=== PATIENT | female | born 1955 | race Caucasian/White ===

== ENCOUNTER 2016-09-05 12:55 | Inpatient (IN) | payer OTHER ==
[~2016-09-05] VITALS: Ht 167.6 cm; Wt 63.9 kg
[2016-09-05] MEDS ORDERED: BREO ELLIPTA I1 EACH IH (13:29)
[2016-09-05] MEDS ORDERED: INCRUSE ELLI62.5 MCG IH (13:29)
[2016-09-05 13:42] LABS: HEMATOCRIT 46.8 % (36.0-46.0); MCH 29.2 PG (29.0-34.0); MCHC 31.6 G/DL (30.0-36.0); MCV 92.5 FL (83-99); MEAN PLAT.VOLUME 9.8 uM^3 (9.5-12.4); PLATELET COUNT 130 K/uL (156-360); RBC DIS.WIDTH-CV 12.3 % (11.8-14.6); RBC DIS.WIDTH-SD 40.5 % (39-53); RED BLOOD COUNT 5.06 M/uL (3.80-5.20); WHITE BLOOD COUNT 2.9 K/uL (4.1-10.2)
[2016-09-05 13:54] LABS: CHLORIDE 97 mEq/L (99-109); POTASSIUM 3.9 mEq/L (3.7-5.4); SODIUM 145 mEq/L (136-147)
[2016-09-05 13:56] LABS: GLUCOSE 143 mg/dL (70-99)
[2016-09-05 13:57] LABS: ANION GAP 14 MEQ/L (2-14)
[2016-09-05 13:59] LABS: GFR ESTIMATE (CALCULATED) > 59 mL/min/
[2016-09-05 14:00] LABS: UREA NITROGEN (BUN) 16 mg/dL (9-23)
[2016-09-05 14:03] LABS: D-DIMER ELISA 0.16 mg/L FEU (< 0.57)
[2016-09-05 14:07] LABS: TROP-I INTERPRETATION NEGATIVE; TROPONIN-I < 0.01 ng/mL (0.0-0.30)
[2016-09-05 15:18] LABS: VENOUS PCO2 100 mm Hg (41-51)
[2016-09-05 15:19] LABS: CARBON DIOXIDE (BICARBONATE) > 40.0 MEQ/L (20-31)
[2016-09-05 17:51] LABS: BASE EXCESS 6.5 mEq/L (-3 to +3); BICARBONATE 35.9 mEq/L (22-26); CARBOXY HGB 1.2 % (0-5); COMMENTS - BLOOD GASES A+C+; DEVICE 840; FI02 40 %; METHEMOGLOBIN 1.2 % (0-1.5); MODE PS; PCO2 73 mm Hg (35-45); PEEP 5 CM/H20; PO2 98 mm Hg (80-100); PRES. SUPPORT 15 CM/H2O; SITE LRA; TOTAL RESP RATE 20 resp/min
[2016-09-05 20:34] VITALS: BP 132/81
[2016-09-05 20:53] VITALS: BP 132/81
[2016-09-05 21:00] VITALS: BP 123/92
[2016-09-05 22:00] VITALS: BP 119/83
[2016-09-05 22:28] LABS: METH RESISTANT S AUREUS PCR NEGATIVE (NEGATIVE)
[2016-09-05 22:30] LABS: PROBE CHECK PASS; SPECIMEN PROCESSING CONTROL PASS
[2016-09-05 23:00] VITALS: BP 124/81
[2016-09-06] VITALS (21 sets, daily range): BP systolic 105–145; BP diastolic 60–88
[2016-09-06 08:42] LABS: EOSINOPHIL (%) 0.4 % (0-5); HEMATOCRIT 44.2 % (36.0-46.0); MCH 28.9 PG (29.0-34.0); MCHC 30.8 G/DL (30.0-36.0); MCV 93.8 FL (83-99); MEAN PLAT.VOLUME 10.3 uM^3 (9.5-12.4); MONOCYTE (%) 16.1 % (3-12); MONOCYTE COUNT 0.9 K/uL (0-0.8); NEUTROPHIL (%) 64.5 % (45-76); NEUTROPHIL COUNT 3.5 K/uL (1.8-6.4); PLATELET COUNT 150 K/uL (156-360); RBC DIS.WIDTH-CV 12.4 % (11.8-14.6); RBC DIS.WIDTH-SD 42.7 % (39-53); RED BLOOD COUNT 4.71 M/uL (3.80-5.20)
[2016-09-06 08:43] LABS: WHITE BLOOD COUNT 5.4 K/uL (4.1-10.2)
[2016-09-06 09:01] LABS: ANION GAP 6 MEQ/L (2-14); CHLORIDE 97 MEQ/L (99-109); GFR ESTIMATE (CALCULATED) > 59 mL/min/; MAGNESIUM 2.3 mg/dl (1.3-2.7); POTASSIUM 4.3 MEQ/L (3.7-5.4); SAMPLE HEMOLYSIS CHECK 0; SAMPLE ICTERIC CHECK 0; SAMPLE LIPEMIA CHECK 0; SODIUM 143 MEQ/L (136-147); UREA NITROGEN (BUN) 18 mg/dL (9-23)
[2016-09-06 09:02] LABS: GLUCOSE 91 mg/dL (70-99)
[2016-09-07 05:07] VITALS: BP 154/84
[2016-09-07 06:47] LABS: EOSINOPHIL (%) 0 % (0-5); HEMATOCRIT 42.8 % (36.0-46.0); IMMATURE GRANULOCYTE (%) 0.2 % (0.0-0.7); LYMPHOCYTE COUNT 0.9 K/uL (1.0-2.8); MCH 29.4 PG (29.0-34.0); MCHC 30.6 G/DL (30.0-36.0); MEAN PLAT.VOLUME 10.6 uM^3 (9.5-12.4); MONOCYTE (%) 6.7 % (3-12); MONOCYTE COUNT 0.4 K/uL (0-0.8); NEUTROPHIL (%) 76.6 % (45-76); NEUTROPHIL COUNT 4.1 K/uL (1.8-6.4); PLATELET COUNT 157 K/uL (156-360); RBC DIS.WIDTH-CV 12.4 % (11.8-14.6); RBC DIS.WIDTH-SD 43.3 % (39-53); RED BLOOD COUNT 4.46 M/uL (3.80-5.20); WHITE BLOOD COUNT 5.3 K/uL (4.1-10.2)
[2016-09-07 07:13] LABS: ANION GAP 4 MEQ/L (2-14); CHLORIDE 100 MEQ/L (99-109); GFR ESTIMATE (CALCULATED) > 59 mL/min/; GLUCOSE 99 mg/dL (70-99); POTASSIUM 4.6 MEQ/L (3.7-5.4); SAMPLE HEMOLYSIS CHECK 0; SAMPLE ICTERIC CHECK 0; SAMPLE LIPEMIA CHECK 0; SODIUM 142 MEQ/L (136-147); UREA NITROGEN (BUN) 21 mg/dL (9-23)
[2016-09-07 07:17] LABS: INTERNAL CONTROL VALID? YES
[2016-09-07 08:02] VITALS: BP 143/85
[2016-09-07 16:57] VITALS: BP 138/72
[2016-09-07 23:52] VITALS: BP 151/72
[2016-09-08 04:55] VITALS: BP 118/67
[2016-09-08 06:42] LABS: EOSINOPHIL (%) 0 % (0-5); HEMATOCRIT 42.3 % (36.0-46.0); IMMATURE GRANULOCYTE (%) 0.2 % (0.0-0.7); LYMPHOCYTE COUNT 0.8 K/uL (1.0-2.8); MCH 28.7 PG (29.0-34.0); MCV 95.7 FL (83-99); MEAN PLAT.VOLUME 10.5 uM^3 (9.5-12.4); MONOCYTE (%) 9.8 % (3-12); MONOCYTE COUNT 0.5 K/uL (0-0.8); NEUTROPHIL (%) 73.8 % (45-76); NEUTROPHIL COUNT 3.6 K/uL (1.8-6.4); PLATELET COUNT 155 K/uL (156-360); RBC DIS.WIDTH-CV 12.3 % (11.8-14.6); RBC DIS.WIDTH-SD 43.2 % (39-53); RED BLOOD COUNT 4.42 M/uL (3.80-5.20); WHITE BLOOD COUNT 4.9 K/uL (4.1-10.2)
[2016-09-08 07:07] LABS: ANION GAP 6 MEQ/L (2-14); CHLORIDE 101 MEQ/L (99-109); MAGNESIUM 1.9 mg/dl (1.3-2.7); POTASSIUM 4.2 MEQ/L (3.7-5.4); SAMPLE HEMOLYSIS CHECK 0; SAMPLE ICTERIC CHECK 0; SAMPLE LIPEMIA CHECK 0; SODIUM 144 MEQ/L (136-147)
[2016-09-08 07:12] LABS: GFR ESTIMATE (CALCULATED) > 59 mL/min/; GLUCOSE 99 mg/dL (70-99); UREA NITROGEN (BUN) 19 mg/dL (9-23)
[2016-09-08 10:07] VITALS: BP 135/83
[2016-09-08 11:59] VITALS: BP 171/88
[2016-09-08] MEDS ORDERED: LEVAQUIN750 MG PO (15:25)
[2016-09-08] MEDS ORDERED: PREDNISONE10 M1 PO (15:25)
[2016-09-08] MEDS ORDERED: ALPRAZOLAM0.25 M2 PO (15:25)
[2016-09-08] MEDS ORDERED: VENTOLIN HFA18 GM IH (15:25)
[2016-09-08 15:37] VITALS: BP 140/92
[2016-09-08 19:30] VITALS: BP 146/88
== END 2016-09-08 20:46 | disposition home health service (06) | DRG 208 ==
LOC: EME 12:55 → EDOF 18:02 → 4WEST 18:02 → 4EAST 18:02 → 4WEST 20:33 → 4EAST 09-06 22:04 → 4SOUTH 09-08 09:55
PROVIDERS: Emergency Medicine; Internal Medicine Nephrology
PROC: 5A1945Z Respiratory Ventilation, 24-96 Consecutive Hours (ICD-10-PCS; principal; 2016-09-05)
PROC: 0BH17EZ Insertion of Endotracheal Airway into Trachea, Via Natural or Artificial Opening (ICD-10-PCS; 2016-09-05)
DX: J96.21 Acute and chronic respiratory failure with hypoxia (principal); J44.1 Chronic obstructive pulmonary disease with (acute) exacerbation; E87.2 Acidosis; J96.22 Acute and chronic respiratory failure with hypercapnia; J20.9 Acute bronchitis, unspecified; F41.9 Anxiety disorder, unspecified; I10 Essential (primary) hypertension; Z99.81 Dependence on supplemental oxygen; Z87.891 Personal history of nicotine dependence; Z88.5 Allergy status to narcotic agent
CPT/HCPCS: 36600; 71020; 80048; 82803; 83735; 84100; 84484; 85025; 85027; 85379; 87449; 87641; 93005; 94002; 94640; 94640 76; 94644; 94799; 99202; 99281; 99285; J1100; J1644; J1956; J2060; J2920; J3475; J7644; S0028

== ENCOUNTER 2017-02-12 14:19 | Inpatient (IN) | payer OTHER ==
[~2017-02-12] VITALS: Ht 167.6 cm; Wt 74.8 kg
[~2017-02-12 14:19] MED LIST: ALPRAZOLAM0.25 M2 PO; BREO ELLIPTA I1 EACH IH; INCRUSE ELLI62.5 MCG IH; LEVAQUIN750 MG PO; PREDNISONE10 M1 PO; VENTOLIN HFA18 GM IH
[2017-02-12 15:29] LABS: EOSINOPHIL (%) 0.2 % (0-5); IMMATURE GRANULOCYTE (%) 0.7 % (0.0-0.7); INSTRUMENT ABS NEUTROPHIL CT 2.9 K/uL; LYMPHOCYTE COUNT 0.8 K/uL (1.0-2.8); MCH 28.7 PG (29.0-34.0); MCHC 31.6 G/DL (30.0-36.0); MCV 90.9 FL (83-99); MEAN PLAT.VOLUME 9.3 uM^3 (9.5-12.4); MONOCYTE (%) 6.7 % (3-12); MONOCYTE COUNT 0.3 K/uL (0-0.8); NEUTROPHIL (%) 71.8 % (45-76); NEUTROPHIL COUNT 2.9 K/uL (1.8-6.4); PLATELET COUNT 170 K/uL (156-360); RBC DIS.WIDTH-CV 12.3 % (11.8-14.6); RBC DIS.WIDTH-SD 40.5 % (39-53); RED BLOOD COUNT 4.84 M/uL (3.80-5.20)
[2017-02-12 15:36] LABS: CHLORIDE 104 mEq/L (99-109); POTASSIUM 3.6 mEq/L (3.7-5.4); SODIUM 144 mEq/L (136-147)
[2017-02-12 15:38] LABS: GLUCOSE 114 mg/dL (70-99)
[2017-02-12 15:40] LABS: ANION GAP 8 MEQ/L (2-14); TOTAL BILIRUBIN 0.6 mg/dL (0.0-1.0)
[2017-02-12 15:42] LABS: ALKALINE PHOSPHATASE 43 IU/L (3-129); GFR ESTIMATE (CALCULATED) > 59 mL/min/
[2017-02-12 15:43] LABS: UREA NITROGEN (BUN) 11 mg/dL (9-23)
[2017-02-12 15:48] LABS: TROP-I INTERPRETATION NEGATIVE; TROPONIN-I < 0.01 ng/mL (0.0-0.30)
[2017-02-12 18:37] LABS: D-DIMER ELISA < 0.15 mg/L FEU (< 0.57)
[2017-02-12 20:30] VITALS: BP 144/83
[2017-02-12] MEDS ORDERED: ZOLOFT25 MG PO (20:55)
[2017-02-13] VITALS: BP 119/64
[2017-02-13 03:54] VITALS: BP 105/55
[2017-02-13 05:57] LABS: HEMATOCRIT 39.7 % (36.0-46.0); MCH 28.9 PG (29.0-34.0); MCHC 31.2 G/DL (30.0-36.0); MCV 92.5 FL (83-99); MEAN PLAT.VOLUME 9.8 uM^3 (9.5-12.4); PLATELET COUNT 192 K/uL (156-360); RBC DIS.WIDTH-CV 12.2 % (11.8-14.6); RBC DIS.WIDTH-SD 41.7 % (39-53); RED BLOOD COUNT 4.29 M/uL (3.80-5.20); WHITE BLOOD COUNT 6.4 K/uL (4.1-10.2)
[2017-02-13 06:22] LABS: ANION GAP 6 MEQ/L (2-14); CHLORIDE 104 MEQ/L (99-109); GFR ESTIMATE (CALCULATED) > 59 mL/min/; GLUCOSE 128 mg/dL (70-99); POTASSIUM 4.3 MEQ/L (3.7-5.4); SAMPLE HEMOLYSIS CHECK 0; SAMPLE ICTERIC CHECK 0; SAMPLE LIPEMIA CHECK 0; SODIUM 145 MEQ/L (136-147); UREA NITROGEN (BUN) 16 mg/dL (9-23)
[2017-02-13 07:09] VITALS: BP 125/69
[2017-02-13 11:25] VITALS: BP 132/74
[2017-02-13 15:33] VITALS: BP 126/72
[2017-02-13 19:00] VITALS: BP 129/70
[2017-02-14 00:31] VITALS: BP 144/77
[2017-02-14 04:27] VITALS: BP 126/69
[2017-02-14 07:30] VITALS: BP 134/81
[2017-02-14 11:05] VITALS: BP 138/785
[2017-02-14 15:46] VITALS: BP 129/76
[2017-02-14] MEDS ORDERED: MULTIPLE VITAM1 EAC1 PO (15:58)
[2017-02-14] MEDS ORDERED: ASCORBIC ACID100 MG PO (15:58)
[2017-02-14] MEDS ORDERED: VITAMIN D400 UNIT PO (15:59)
[2017-02-14 20:30] VITALS: BP 145/76
[2017-02-15 00:13] VITALS: BP 151/78
[2017-02-15 04:29] VITALS: BP 140/78
[2017-02-15 09:26] VITALS: BP 154/80
[2017-02-15 12:24] VITALS: BP 156/81
[2017-02-15 16:42] VITALS: BP 146/84
[2017-02-15 21:36] VITALS: BP 130/85
[2017-02-16 00:59] VITALS: BP 164/82
[2017-02-16 04:49] VITALS: BP 133/68
[2017-02-16 09:32] VITALS: BP 154/80
[2017-02-16 10:13] LABS: HEMATOCRIT 40.7 % (36.0-46.0); MCH 28.8 PG (29.0-34.0); MCHC 30.2 G/DL (30.0-36.0); MCV 95.3 FL (83-99); MEAN PLAT.VOLUME 9.8 uM^3 (9.5-12.4); PLATELET COUNT 174 K/uL (156-360); RBC DIS.WIDTH-CV 12.7 % (11.8-14.6); RED BLOOD COUNT 4.27 M/uL (3.80-5.20)
[2017-02-16 10:26] LABS: ANION GAP 3 MEQ/L (2-14); CHLORIDE 103 MEQ/L (99-109); POTASSIUM 4.4 MEQ/L (3.7-5.4); SAMPLE HEMOLYSIS CHECK 0; SAMPLE ICTERIC CHECK 0; SAMPLE LIPEMIA CHECK 0; SODIUM 145 MEQ/L (136-147)
[2017-02-16 10:33] LABS: GFR ESTIMATE (CALCULATED) > 59 mL/min/; GLUCOSE 102 mg/dL (70-99); UREA NITROGEN (BUN) 24 mg/dL (9-23)
[2017-02-16 13:07] VITALS: BP 162/87
[2017-02-16 15:48] VITALS: BP 158/83
[2017-02-16 19:07] VITALS: BP 163/96
[2017-02-17 00:41] VITALS: BP 155/70
[2017-02-17 06:31] VITALS: BP 132/79
[2017-02-17 08:10] VITALS: BP 132/79
[2017-02-17 11:49] VITALS: BP 148/82
[2017-02-17] MEDS ORDERED: MEDROL DOSEPAK4 MG PO (14:23)
[2017-02-17] MEDS ORDERED: OMEPRAZOLE20 MG PO (14:24)
== END 2017-02-17 16:20 | disposition home health service (06) | DRG 191 ==
LOC: EME 14:19 → EDOF 19:22 → 5WEST 20:21 → 5SOUTH 02-13 10:05 → 5WEST 02-13 10:05
PROVIDERS: Emergency Medicine; Hospitalist; Nurse Practitioner Adult Health
DX: J44.0 Chronic obstructive pulmonary disease with (acute) lower respiratory infection (principal); J96.10 Chronic respiratory failure, unspecified whether with hypoxia or hypercapnia; J20.9 Acute bronchitis, unspecified; J44.1 Chronic obstructive pulmonary disease with (acute) exacerbation; I10 Essential (primary) hypertension; F41.9 Anxiety disorder, unspecified; Z90.49 Acquired absence of other specified parts of digestive tract; Z99.81 Dependence on supplemental oxygen; Z79.899 Other long term (current) drug therapy; Z80.0 Family history of malignant neoplasm of digestive organs; Z80.8 Family history of malignant neoplasm of other organs or systems
CPT/HCPCS: 71020; 80048; 80053; 83880; 84484; 85025; 85027; 85379; 93005; 94640; 94640 76; 94760; 94799; 99202; 99281; 99285; G0378; J1100; J1644; J1885; J2930; J7030; J7512; J7644

== ENCOUNTER 2017-02-20 11:17 | Inpatient (IN) | payer OTHER ==
[~2017-02-20] VITALS: Ht 167.6 cm; Wt 75.3 kg
[~2017-02-20 11:17] MED LIST changes: +ASCORBIC ACID100 MG PO; +MEDROL DOSEPAK4 MG PO; +MULTIPLE VITAM1 EAC1 PO; +OMEPRAZOLE20 MG PO; +VITAMIN D400 UNIT PO; +ZOLOFT25 MG PO
[2017-02-20 12:44] LABS: EOSINOPHIL (%) 0.2 % (0-5); HEMATOCRIT 44.2 % (36.0-46.0); IMMATURE GRANULOCYTE (%) 0.4 % (0.0-0.7); INSTRUMENT ABS NEUTROPHIL CT 6.7 K/uL; LYMPHOCYTE COUNT 0.9 K/uL (1.0-2.8); MCH 28.8 PG (29.0-34.0); MCHC 32.4 G/DL (30.0-36.0); MCV 89.1 FL (83-99); MEAN PLAT.VOLUME 9.8 uM^3 (9.5-12.4); MONOCYTE (%) 10.6 % (3-12); MONOCYTE COUNT 0.9 K/uL (0-0.8); NEUTROPHIL (%) 78.2 % (45-76); NEUTROPHIL COUNT 6.7 K/uL (1.8-6.4); PLATELET COUNT 196 K/uL (156-360); RBC DIS.WIDTH-CV 12.4 % (11.8-14.6); RBC DIS.WIDTH-SD 40.1 % (39-53); RED BLOOD COUNT 4.96 M/uL (3.80-5.20); WHITE BLOOD COUNT 8.5 K/uL (4.1-10.2)
[2017-02-20 12:51] LABS: CHLORIDE 100 mEq/L (99-109); POTASSIUM 3.8 mEq/L (3.7-5.4); SODIUM 141 mEq/L (136-147)
[2017-02-20 12:52] LABS: GLUCOSE 107 mg/dL (70-99)
[2017-02-20 12:54] LABS: ANION GAP 11 MEQ/L (2-14)
[2017-02-20 12:56] LABS: GFR ESTIMATE (CALCULATED) > 59 mL/min/; SERUM ETHYL ALCOHOL < 10 mg/dL
[2017-02-20 12:57] LABS: UREA NITROGEN (BUN) 17 mg/dL (9-23)
[2017-02-20 15:47] LABS: ADD MIUA? YES; BILIRUBIN NEGATIVE; BLOOD SMALL; COLOR YELLOW ((YELLOW)); GLUCOSE (STRIP) NEGATIVE; KETONES 20; LEUKOCYTES SMALL; NITRITE NEGATIVE; PROTEIN (STRIP) 30; SPECIFIC GRAVITY 1.019 (1.000-1.030); UROBILINOGEN 0.2 MG/DL (0.2-1.0)
[2017-02-20 15:56] LABS: BACTERIA RARE /HPF; EPITHELIAL CELLS 1+ /HPF; MUCUS 1+ /LPF
[2017-02-20 15:57] LABS: AMPHETAMINE NEGATIVE (500 ng/mL); BARBITURATES NEGATIVE (200 ng/mL); BENZODIAZEPINES NEGATIVE (150 ng/mL); COCAINE NEGATIVE (150 ng/mL); INTERNAL CONTROLS VALID? YES; METHADONE NEGATIVE (200 ng/mL); METHAMPHETAMINE NEGATIVE (500 ng/mL); OPIATES (MORPHINE) NEGATIVE (100 ng/mL); OXYCODONE NEGATIVE (100 ng/mL); PHENCYCLIDINE NEGATIVE (25 ng/mL); PROPOXYPHENE NEGATIVE (300 ng/mL); THC CANNABINOIDS NEGATIVE (50 ng/mL); TRICYCLIC ANTIDEPRESSANTS NEGATIVE (300 ng/mL)
[2017-02-20 16:53] VITALS: BP 128/84
[2017-02-21 07:42] VITALS: BP 160/85
[2017-02-21 15:34] VITALS: BP 137/83
[2017-02-22 07:52] VITALS: BP 155/88
[2017-02-22 15:41] VITALS: BP 140/83
[2017-02-23 07:23] VITALS: BP 140/88
[2017-02-23 11:10] VITALS: BP 166/77
[2017-02-23 12:01] VITALS: BP 139/80
[2017-02-23 15:16] VITALS: BP 152/81
[2017-02-24 07:36] VITALS: BP 147/77
[2017-02-24 11:23] VITALS: BP 135/77
[2017-02-24 16:38] VITALS: BP 145/81
[2017-02-25 08:02] VITALS: BP 171/97
[2017-02-25 16:03] VITALS: BP 156/78
[2017-02-25 20:42] VITALS: BP 166/84
[2017-02-26 07:46] VITALS: BP 129/67
[2017-02-26 15:28] VITALS: BP 136/75
[2017-02-27 07:54] VITALS: BP 159/98
[2017-02-27 15:43] VITALS: BP 132/84
[2017-02-28 07:09] VITALS: BP 151/87
[2017-02-28] MEDS ORDERED: ALPRAZOLAM0.25 M2 PO (09:21)
[2017-02-28] MEDS ORDERED: ZOLPIDEM TARTRAT5 MG PO (09:21)
[2017-02-28] MEDS ORDERED: PROZAC40 MG PO (09:22)
== END 2017-02-28 11:00 | disposition home or self-care (01) | DRG 885 ==
LOC: EME 11:17 → 1WEST 13:05 → EDOF 13:05 → 1WEST 16:13
PROVIDERS: Emergency Medicine
DX: F32.1 Major depressive disorder, single episode, moderate (principal); Z99.81 Dependence on supplemental oxygen; J44.9 Chronic obstructive pulmonary disease, unspecified; F41.1 Generalized anxiety disorder; F43.21 Adjustment disorder with depressed mood; I10 Essential (primary) hypertension; Z87.442 Personal history of urinary calculi; R63.0 Anorexia; J45.909 Unspecified asthma, uncomplicated; G47.00 Insomnia, unspecified; I45.10 Unspecified right bundle-branch block
CPT/HCPCS: 80048; 81003; 85025; 87086; 90839; 93005; 94640; 94640 76; 94760; 94799; 99202; 99281; 99285; G0480; J7509

== ENCOUNTER 2017-03-09 12:53 | Inpatient (IN) | payer OTHER ==
[~2017-03-09] VITALS: Ht 167.6 cm; Wt 79.0 kg
[~2017-03-09 12:53] MED LIST changes: -ASCORBIC ACID100 MG PO; +ASCORBIC ACID500 M3 PO; +PROZAC40 MG PO; +ZOLPIDEM TARTRAT5 MG PO
[2017-03-09 14:07] LABS: EOSINOPHIL (%) 0.5 % (0-5); HEMATOCRIT 41.7 % (36.0-46.0); IMMATURE GRANULOCYTE (%) 0.2 % (0.0-0.7); INSTRUMENT ABS NEUTROPHIL CT 2.7 K/uL; MCH 28.9 PG (29.0-34.0); MCHC 31.4 G/DL (30.0-36.0); MCV 91.9 FL (83-99); MEAN PLAT.VOLUME 9.3 uM^3 (9.5-12.4); MONOCYTE (%) 10.3 % (3-12); MONOCYTE COUNT 0.4 K/uL (0-0.8); NEUTROPHIL (%) 65.3 % (45-76); NEUTROPHIL COUNT 2.7 K/uL (1.8-6.4); PLATELET COUNT 190 K/uL (156-360); RBC DIS.WIDTH-CV 12.5 % (11.8-14.6); RBC DIS.WIDTH-SD 42.2 % (39-53); RED BLOOD COUNT 4.54 M/uL (3.80-5.20); WHITE BLOOD COUNT 4.1 K/uL (4.1-10.2)
[2017-03-09 14:13] LABS: D-DIMER ELISA < 150.00 ng/mLDDU (<230)
[2017-03-09 14:20] LABS: CHLORIDE 105 mEq/L (99-109); POTASSIUM 3.5 mEq/L (3.7-5.4); SODIUM 146 mEq/L (136-147)
[2017-03-09 14:22] LABS: GLUCOSE 100 mg/dL (70-99)
[2017-03-09 14:23] LABS: ANION GAP 10 MEQ/L (2-14)
[2017-03-09 14:25] LABS: GFR ESTIMATE (CALCULATED) > 59 mL/min/
[2017-03-09 14:26] LABS: TROP-I INTERPRETATION NEGATIVE; TROPONIN-I < 0.01 ng/mL (0.0-0.30); UREA NITROGEN (BUN) 12 mg/dL (9-23)
[2017-03-09] MEDS ORDERED: DEBROX15 ML LEFT EAR (15:09)
[2017-03-09 16:53] VITALS: BP 130/93
[2017-03-09 17:42] VITALS: BP 130/93
[2017-03-10 07:43] VITALS: BP 129/66
[2017-03-10 15:36] VITALS: BP 115/65
[2017-03-11 07:43] VITALS: BP 137/67
[2017-03-11 15:46] VITALS: BP 119/62
[2017-03-12 07:37] VITALS: BP 129/72
[2017-03-12 15:16] VITALS: BP 123/64
[2017-03-13 07:46] VITALS: BP 134/76
[2017-03-13 15:28] VITALS: BP 126/63
[2017-03-14 07:41] VITALS: BP 123/64
[2017-03-14 15:23] VITALS: BP 130/69
[2017-03-15 07:48] VITALS: BP 126/75
[2017-03-15 15:50] VITALS: BP 113/63
[2017-03-16 07:38] VITALS: BP 132/77
[2017-03-16 15:21] VITALS: BP 110/58
[2017-03-17 07:38] VITALS: BP 119/65
[2017-03-17 15:24] VITALS: BP 118/63
[2017-03-18 07:41] VITALS: BP 111/59
[2017-03-18 16:01] VITALS: BP 116/62
[2017-03-19 07:40] VITALS: BP 127/72
[2017-03-19 15:48] VITALS: BP 143/75
[2017-03-20 08:13] VITALS: BP 129/82
[2017-03-20 15:32] VITALS: BP 130/75
[2017-03-21 07:26] VITALS: BP 117/66
[2017-03-21 15:46] VITALS: BP 164/90
[2017-03-21 18:03] VITALS: BP 141/88
[2017-03-22 08:19] VITALS: BP 169/80
[2017-03-22 16:09] VITALS: BP 154/84
[2017-03-23 08:22] VITALS: BP 139/78
[2017-03-23 15:32] VITALS: BP 154/86
[2017-03-24 07:54] VITALS: BP 155/90
[2017-03-24 16:26] VITALS: BP 143/83
[2017-03-25 09:07] VITALS: BP 154/66
[2017-03-25 16:55] VITALS: BP 168/79
[2017-03-26 07:54] VITALS: BP 138/69
[2017-03-26] MEDS ORDERED: ALPRAZOLAM0.5 MG PO (12:08)
[2017-03-26 15:33] VITALS: BP 156/76
[2017-03-27 07:36] VITALS: BP 149/79
[2017-03-27 15:41] VITALS: BP 134/60
[2017-03-27 18:45] VITALS: BP 134/77
[2017-03-28 07:47] VITALS: BP 135/80
== END 2017-03-28 13:28 | disposition home or self-care (01) | DRG 885 ==
LOC: EME 12:53 → EDOF 14:47 → 1WEST 14:47 → ENRESERV 16:13 → 1WEST 16:45
PROVIDERS: Emergency Medicine
DX: F33.2 Major depressive disorder, recurrent severe without psychotic features (principal); F41.1 Generalized anxiety disorder; J44.9 Chronic obstructive pulmonary disease, unspecified; R45.851 Suicidal ideations; Z99.81 Dependence on supplemental oxygen; I10 Essential (primary) hypertension; Z79.899 Other long term (current) drug therapy; Z87.442 Personal history of urinary calculi
CPT/HCPCS: 71010; 80048; 84484; 85025; 85379; 90839; 93005; 94640; 94640 76; 94799; 97150 GO; 97165 GO; 99202; 99281; 99285

== ENCOUNTER 2017-07-10 16:15 | Emergency (ER) | payer OTHER ==
[~2017-07-10] VITALS: Ht 167.6 cm; Wt 77.3 kg
[~2017-07-10 16:15] MED LIST changes: +ALPRAZOLAM0.5 MG PO; +DEBROX15 ML LEFT EAR
[2017-07-10 17:37] LABS: EOSINOPHIL (%) 1.9 % (0-5); EOSINOPHIL COUNT 0.1 K/uL (0-0.3); HEMATOCRIT 38.9 % (36.0-46.0); INSTRUMENT ABS NEUTROPHIL CT 2.3 K/uL; LYMPHOCYTE COUNT 1.2 K/uL (1.0-2.8); MCH 29.5 PG (29.0-34.0); MCHC 31.6 G/DL (30.0-36.0); MCV 93.3 FL (83-99); MEAN PLAT.VOLUME 9.6 uM^3 (9.5-12.4); MONOCYTE (%) 13.6 % (3-12); MONOCYTE COUNT 0.6 K/uL (0-0.8); NEUTROPHIL (%) 55.9 % (45-76); NEUTROPHIL COUNT 2.3 K/uL (1.8-6.4); PLATELET COUNT 148 K/uL (156-360); RBC DIS.WIDTH-CV 11.9 % (11.8-14.6); RBC DIS.WIDTH-SD 40.6 % (39-53); RED BLOOD COUNT 4.17 M/uL (3.80-5.20); WHITE BLOOD COUNT 4.1 K/uL (4.1-10.2)
[2017-07-10 17:45] LABS: CHLORIDE 105 mEq/L (99-109); POTASSIUM 3.9 mEq/L (3.7-5.4); SODIUM 143 mEq/L (136-147)
[2017-07-10 17:47] LABS: GLUCOSE 94 mg/dL (70-99)
[2017-07-10 17:48] LABS: ANION GAP 5 MEQ/L (2-14)
[2017-07-10 17:49] LABS: TOTAL BILIRUBIN 0.3 mg/dL (0.0-1.0)
[2017-07-10 17:51] LABS: ALKALINE PHOSPHATASE 52 IU/L (3-129); GFR ESTIMATE (CALCULATED) > 59 mL/min/
[2017-07-10 17:52] LABS: UREA NITROGEN (BUN) 15 mg/dL (9-23)
[2017-07-10 17:54] LABS: LIPASE 134 U/L (1.0-51.0)
[2017-07-10] MEDS ORDERED: PERCOCET 5/31 TABLET PO (20:02)
[2017-07-10] MEDS ORDERED: INDOCIN50 MG PO (20:35)
[2017-07-10 20:40] VITALS: BP 156/97
== END 2017-07-10 20:52 | disposition home or self-care (01) ==
LOC: EME 16:15
PROVIDERS: Emergency Medicine
DX: K43.9 Ventral hernia without obstruction or gangrene (principal); M54.9 Dorsalgia, unspecified; Z87.442 Personal history of urinary calculi; Z90.49 Acquired absence of other specified parts of digestive tract; J44.9 Chronic obstructive pulmonary disease, unspecified; Z99.81 Dependence on supplemental oxygen
CPT/HCPCS: 74176; 80053; 83690; 85025; 93005; 99281; 99285

== ENCOUNTER 2017-09-06 12:54 | Day surgery (SDC) | payer OTHER ==
[~2017-09-06] VITALS: Ht 167.6 cm; Wt 81.6 kg
[~2017-09-06 12:54] MED LIST changes: +INDOCIN50 MG PO; +PERCOCET 5/31 TABLET PO; +PROZAC10 MG PO; +XANAX0.5 MG PO
[2017-09-06 13:15] VITALS: BP 136/79
[2017-09-06 21:35] VITALS: BP 129/72
[2017-09-06 23:28] VITALS: BP 122/75
[2017-09-07 03:48] VITALS: BP 118/70
[2017-09-07 08:00] VITALS: BP 112/58
[2017-09-07 16:00] VITALS: BP 105/63
[2017-09-07 19:20] VITALS: BP 119/66
[2017-09-07] MEDS ORDERED: ENDOCET 5-3251 EACH PO (19:46)
[2017-09-07] MEDS ORDERED: COLACE100 MG PO (19:48)
== END 2017-09-07 21:16 | disposition home or self-care (01) ==
LOC: SDC 12:54 → ENRESERV 20:30 → 2SOUTH 20:33 → 2EAST 20:33 → ENRESERV 20:36 → 2EAST 21:16 → EDPENDDISTM 09-07 → EDPENDDISDT 09-07 → 2EAST 09-07 21:16
PROC: 0WUF0JZ Supplement Abdominal Wall with Synthetic Substitute, Open Approach (ICD-10-PCS; principal; 2017-09-06)
DX: K43.6 Other and unspecified ventral hernia with obstruction, without gangrene (principal); I10 Essential (primary) hypertension; J44.9 Chronic obstructive pulmonary disease, unspecified; Z99.81 Dependence on supplemental oxygen; Z86.19 Personal history of other infectious and parasitic diseases; Z86.711 Personal history of pulmonary embolism
CPT/HCPCS: 94640; 94799; 99202; C1781; G0378; J0690; J1100; J1170; J1644; J1885; J2250; J2405; J2710; J3010; J7120; Q0175